=== PATIENT | female | born 1960 | race Caucasian/White ===

== ENCOUNTER 2022-11-14 09:25 | Outpatient (AMB) | payer OTHER, SELFPAY ==
--- NOTE | 2022-11-14 09:32 | AM.OFFWIN_ITS ---
Intake Vital Signs 11/14/22 09:41 BP 110/74 Blood Pressure Location Lt brachial Position Sitting Pulse 64 Pulse Source Pulse Oximeter Temp 97.7 F Temp Source Temporal Artery Scan Pulse Oximetry (%) 97 Oxygen Delivery Method Room Air Intake Visit Reasons: ?UTI (rahel) Intake Note: Patient here for possible UTI. frequent urination, burning while urinating and after. Patient Tobacco Use Status: Former Tobacco user Allergies No Known Allergies Allergy (Verified 11/14/22 09:39) Do you need a note to return to daycare/school/sports/work: No HPI ?UTI (lobby) HPI Details 62-year-old female patient presents today with vaginal burning and itching. She reports burning, particularly after urination. Denies any fever or chills. Denies odor to the urine however notices a slightly bad vaginal odor this morning. Denies flank pain. Symptoms presented several days ago after taking Amoxicillin for a tooth infection. She denies any new sexual partners. She states she does not have vaginal intercourse due to vaginal dryness s/p menopause. [facility] Social History Patient Tobacco Use Status: Former Tobacco user Review of Systems Const All systems reviewed & are unremarkable except as noted in HPI and below Physical Exam Vital Signs: Last Vital Signs Temp 97.7 F 11/14/22 09:41 Pulse 64 11/14/22 09:41 BP 110/74 11/14/22 09:41 Pulse Ox 97 11/14/22 09:41 Oxygen Delivery Method Room Air 11/14/22 09:41 Const General: cooperative and no acute distress Resp Effort & Inspection: normal respiratory effort and able to speak in complete sentences Cardio Jugular venous distension: no JVD General: Yes bladder normal to palpation and Yes no CVA tenderness Bimanual exam- vagina & uterus: bladder normal to palpation Back/Spine/Pelvis Back: no CVA tenderness Skin General skin exam: no rashes or lesions noted Extrem General: Yes capillary refill normal and Yes no clubbing, cyanosis or edema Psych Appearance: grossly normal Mental Status: mental status grossly normal Speech and movement: Normal speech and movement present Results AMB Urinalysis, Automated UA Leukoctes 15 Ramirez/uL Last Edit by PIERRE Castaneda on 11/14/22 09:5 7 UA Nitrite Negative Last Edit by PIERRE Castaneda on 11/14/22 09:57 UA Urobilinogen 0 mg/dL Last Edit by PIERRE Castaneda on 11/14/22 09: 57 UA Protein 0 mg/dL Last Edit by PIERRE Castaneda on 11/14/22 09:57 UA pH 6.0 Last Edit by Sara Hinson [facility] on 11/14/22 09:57 UA Blood 0 Adam/uL Last Edit by Sara Hinson [facility] on 11/14/22 09:57 UA Specific [place] 1.020 Last Edit by PIERRE Castaneda on 11/14/22 09:57 UA Ketone Negative Last Edit by Sara Hinson [facility] on 11/14/22 09:57 UA Bilirubin 1 mg/dL Last Edit by Sara Hinson [facility] on 11/14/22 09:57 UA Glucose 0 mg/dL Last Edit by Sara Hinson [facility] on 11/14/22 09:57 Assessment & Plan Assessment & Plan (1) Vulvovaginal candidiasis: Code(s): B37.31 - Acute candidiasis of vulva and vagina Plan: Patient has symptoms likely account retention representative of oval vaginal candidiasis. She recently had course of antibiotics due to an oral infection. She declined vaginal exam or swab. Urine dip in the office not consistent with UTI. We discussed treatment options. She would like to try topical product first. Will send miconazole vaginal cream and also Fluconazole PO should symptoms persist. We reviewed vaginal health and she may continue to use probiotics. We reviewed water-based lubricants for sexual intercourse and I advised she see her CNM to discuss post-menopausal vaginal symptoms. She agrees to plan. Orders: Orders AMB Urinalysis Automated Today Z13.9 - Encounter for screening, unspecified Medications: New fluconazole may repeat second dose 72 hrs after first dose if symptoms persist 150 mg PO Q3D 2 tabs 0RF 2 doses miconazole nitrate 2% 1 appful vaginal BEDTIME 45 grams 0RF 7 days B37.31 - Acute candidiasis of vulva and vagina Coding Level of Care Code Est Pt Level 3 (33352) Diagnoses Vulvovaginal candidiasis B37.31
[2022-11-14 09:41] VITALS: BP 110/74; PULSE 64; TEMP 36.5; O2SAT 97
== END 2022-11-14 10:05 | disposition home or self-care (01) ==
PROVIDERS: PCP Internal Medicine; Visit Provider Nurse Practitioner Family
DX: B37.31 Acute candidiasis of vulva and vagina (principal); Z13.9 Encounter for screening, unspecified
CPT/HCPCS: 81003; 99213

== ENCOUNTER 2023-10-03 10:34 | Outpatient (REF) | payer OTHER, SELFPAY | END 2023-10-03 10:35 | disposition home or self-care (01) | LOC: HO.HOSX 10:34 | PROVIDERS: Visit Provider Orthopaedic Surgery | DX: Z13.89 Encounter for screening for other disorder (principal) ==

== ENCOUNTER 2023-10-10 09:20 | Outpatient (REF) | payer OTHER, SELFPAY ==
--- NOTE | ~2023-10-10 | XR_ITS ---
EXAMINATION: XR KNEE, RIGHT CLINICAL INFORMATION: Right knee pain COMPARISON: None available. TECHNIQUE: Three views of the right knee. FINDINGS: Revised total knee arthroplasty components are in the usual position and alignment without evidence of loosening or fracture. Probable small joint effusion. XR/XR knee RT 3V IMPRESSION: Revised total knee arthroplasty without evidence of complication. Probable small joint effusion.
== END 2023-10-10 09:21 | disposition home or self-care (01) ==
LOC: HO.HOSX 09:20
PROVIDERS: Visit Provider Orthopaedic Surgery
DX: M25.561 Pain in right knee (principal)
CPT/HCPCS: 73562; 99212

== ENCOUNTER 2023-10-10 14:12 | Outpatient (AMB) | payer OTHER, SELFPAY ==
--- NOTE | 2023-10-10 14:18 | MHC.OFFVIS ---
Intake Visit Reasons: New PT - Right Knee Pain Intake Note: Leanne is a 63 year old female who presents with complaints of intermittent discomfort in her right knee. The patient originally underwent right total knee replacement surgery by myself around 2004. The patient subsequently fell off of a cart loosening her total knee arthroplasty. The patient underwent revision surgery by Dr. Moy several years ago. Since that time she has had intermittent discomfort. She denies any locking or giving way. The patient states that she is no longer taking narcotics for her discomfort. Allergies No Known Allergies Allergy (Verified 11/14/22 09:39) Medication List - Last Reconciled 10/10/23 by Deniz Arteaga MD albuterol sulfate 90 mcg/actuation 0 mcg inhalation clonazepam 0.5 - 1 mg PO BEDTIME fluconazole 150 mg PO Q3D 2 doses fluoxetine 40 mg PO DAILY levothyroxine 75 mcg PO 6XW loratadine 10 mg PO DAILY methocarbamol 500 mg PO TID PRN miconazole nitrate 2% 1 appful vaginal BEDTIME 7 days morphine ER 30 mg PO BID PRN omeprazole 20 mg PO DAILY oxybutynin chloride ER 5 mg PO DAILY prednisone 0 mg PO topiramate 100 mg PO DAILY [facility] Social History Patient Tobacco Use Status: Former Tobacco user Physical Exam Const Other: Well-nourished well-developed very friendly female awake alert and oriented x3 in no acute distress Extrem Other: Bilateral lower extremity examination shows good capillary refill, no skin lesions noted, normal sensation light touch Right knee examination shows that the surgical incision is well healed, no erythema, full active extension and flexion to 115 degrees, her patella tracks well, no instability, no focal joint line tenderness, no crepitus with Results Reviewed Results Reviewed: X-rays of the patient's right total knee arthroplasty show that the femoral and patella components are in good position with no signs of loosening, there is a small amount of lucency around the medial aspect of the proximal tibia component but good distal fixation, no gross loosening Assessment & Plan Assessment & Plan (1) Right knee pain: Code(s): M25.561 - Pain in right knee Category: Medical Plan Ms. Langford presents with intermittent right knee pain after undergoing revision total knee arthroplasty by Dr. Moy at [facility] several years ago. At this point I do not feel that her tibial component is loose due to the distal fixation and only small amounts of lucency around the tibial component. I do not feel that another revision surgery is indicated at this time. I will see whether or not she has a candidate for a nerve stimulator procedure by Dr. Martinze here at [facility] in our pain management department. The patient will follow-up as instructed. She will contact me prior to her follow-up appointment in 3 months should her symptoms worsen in any way. Feel free to call me at any time should questions regarding her orthopedic management arise. I spent 21 minutes in reviewing the patient's records and imaging studies, seeing the patient and documenting in the medical record. Orders: Orders XR knee RT 3V 10/10/23 M25.561 - Pain in right knee Referrals Pain Management Referral M25.561 - Pain in right knee Coding Level of Care Code Est Pt Level 3 (76749) Diagnoses Right knee pain M25.561
== END 2023-10-10 14:51 | disposition home or self-care (01) ==
PROVIDERS: PCP Internal Medicine; Visit Provider Orthopaedic Surgery
DX: M25.561 Pain in right knee (principal); Z96.651 Presence of right artificial knee joint
CPT/HCPCS: 99213

== ENCOUNTER 2023-11-06 10:15 | Outpatient (AMB) | payer OTHER, SELFPAY ==
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
[2023-11-06 10:19] VITALS: BP 133/79; PULSE 97; O2SAT 93; BMI 28.9
== END 2023-11-06 10:40 | disposition home or self-care (01) ==
PROVIDERS: PCP Internal Medicine; Referring Provider Orthopaedic Surgery; Visit Provider Internal Medicine
DX: M25.561 Pain in right knee (principal); M25.562 Pain in left knee; G89.28 Other chronic postprocedural pain; Z96.653 Presence of artificial knee joint, bilateral; G90.529 Complex regional pain syndrome I of unspecified lower limb
CPT/HCPCS: 99204

== ENCOUNTER → 2023-11-06 10:15 | Outpatient (BNVA) | payer OTHER, SELFPAY | PROVIDERS: PCP Internal Medicine; Referring Provider Orthopaedic Surgery; Visit Provider Internal Medicine | DX: M25.561 Pain in right knee (principal); M25.562 Pain in left knee; G89.28 Other chronic postprocedural pain; G90.529 Complex regional pain syndrome I of unspecified lower limb; Z96.653 Presence of artificial knee joint, bilateral | CPT/HCPCS: 99202 ==

== ENCOUNTER 2024-09-03 12:11 | Outpatient (REF) | payer OTHER, SELFPAY ==
--- OUTSIDE RECORDS SUMMARY | 2024-09-04 13:09 | XMS_ITS ---
Author Name [facility] Organization Unknown History of Medication Use Medication Directions Dispensed Refills Start Date End Date Stat albuterol sulfate HFA 90 mcg/actuation aerosol inhaler INHALE 2 PUFFS INTO THE LUNGS EVERY 4 HOURS NEEDED FOR COUGH OR WHEEZING OR SHORTNESS OF BREATH active amoxicillin 500 mg capsule TAKE 4 CAPSULE BY MOUTH 1 HOUR PRIOR TO APPT. active amoxicillin 875 mg-potassium clavulanate 125 mg tablet TAKE 1 TABLET BY MOUTH EVERY 12 HOURS active fluconazole 150 mg tablet TAKE 1 TABLET BY MOUTH ONCE DOSE active fluoxetine 40 mg capsule TAKE 1 CAPSULE BY MOUTH DAILY active levothyroxine 75 mcg tablet TAKE 1 TABLET BY MOUTH ONCE A DAY MONDAY THROUGH MONDAY. SKIP SUNDAYS active methocarbamol 500 mg tablet TAKE 1 TABLET BY MOUTH THREE TIMES DAILY NEEDED FOR SPASM active nitrofurantoin monohydrate/macrocryst als 100 mg capsule TAKE 1 CAPSULE BY MOUTH TWICE DAILY FOR 7 DAYS active oxybutynin chloride ER 5 mg tablet,extended release 24 hr TAKE 1 TABLET BY MOUTH DAILY active prednisone 1 mg tablet a ctive topiramate 100 mg tablet TAKE 1 TABLET BY MOUTH EVERY DAY active Allergies Allergen Reaction Severity Comment Documented Date Source Statu s HOUSE DUST [facility] Problems Problem Status Onset Date Problem Type Date of Resoluti on Source Pain of right knee joint active 2022-12-16 ProblemAct [facility] 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 active 2022-09-28 ProblemAct [facility] Loosening of total knee replacement active 2022-09-28 ProblemAct [facility] Skin lesion active 2022-09-28 ProblemAct [facility] Encounters Encounter Type Encounter Reason Primary Diagnosis Location Date Ambulatory [facility] 02/08/2023 Ambulatory [facility] 10/11/2022 Ambulatory [facility] 10/03/2022 Ambulatory [facility] 09/28/2022 Ambulatory [facility] 09/15/2022 Ambulatory [facility] 09/15/2022
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
--- OUTSIDE RECORDS SUMMARY | 2024-09-04 13:10 | XMS_ITS | Data Portability ---
Author Organization [place] [facility] Mauricio Whitten [place] Address [address] [place] [address] Assessment Encounter Date Assessment Date Assessment LastModified by Organization Details LastModified Time 09/28/2022 09/28/2022 62-year-old female with right total knee arthroplasty by Dr. Arteaga.n October 21, 2019 who is evaluated on 11/10/2020 with concerns for aseptic hardware loosening for which she was referred to Dr. Moy for which she had a revision right total knee arthroplasty with ongoing swelling. She does not have any obvious signs of hardware loosening on plain x-ray however we will plan the following; I will send her for the following 1. ESR, CRP if elevated will bring her back for aspiration 2. Possible Future CT of the right knee to rule out hardware loosening 3. Schedule follow-up visit after imaging study and infectious work-up with Dr. Scott. In the meantime she can take [id number] pain medication for symptomatic relief. Patient agrees with above-noted plan. Right shoulder skin lesion concerning for malignant melanoma upon further questioning patient father with skin cancer. I will refer her to [facility] dermatology for urgent evaluation. Plan schedule appointment tomorrow 09/29/2022 Indirect care and treatment in conjunction with Dr. Scott Additional treatment plan discussed with the patient in detail included the following; - Provider focused nonsteroidal anti-inflammatory regimen (discussed were the pros, cons, benefits and risks as well as any black box warnings) in patients over 60 years old they should be very cautious in taking these medications due to potential decreased kidney function and or elevated blood pressure. - Analgesic pain medication for pain suppression (discussed were the pros, cons, benefits and risks as well as any black box warnings) - The use of topical pain relieving medication were discussed - The use of ice to decrease inflammation and pain - The use of assistive ambulatory devices for ambulation and fall prevention - Formal specific guided physical therapy program I reviewed my findings at length with the patient today. ? ? ?We discussed the nature and etiology of this problem along with current treatment options. We discussed the expected course and outcomes and what to expect. We also discussed risks and benefits. ? ? ? All of their questions were answered today, and there was exhibited understanding and comprehension of all that was discussed. Time Spent: 15 minutes were spent reviewing previous imaging and charting. ? ? ?15 minutes were spent obtaining patient history. ? ? ?10 minutes were spent on physical exam. ? ? ?10? ? ?minutes were spent explaining diagnosis and assessment. Today's documentation was made using voice recognition software. This note may contain grammatical errors secondary to the software. Not available 09/28/2022 10:49:52 10/10/2022 10/10/2022 62-year-old female who underwent revision right knee arthroplasty by Dr. Moy with ongoing pain ESR and CRP within the acceptable range Lyme negative. I will send her for CT scan for rule out of hardware loosening and underlying pathology Indirect care and treatment in conjunction with Dr. Scott Additional treatment plan discussed with the patient in detail included the following; - Provider focused nonsteroidal anti-inflammatory regimen (discussed were the pros, cons, benefits and risks as well as any black box warnings) in patients over 60 years old they should be very cautious in taking these medications due to potential decreased kidney function and or elevated blood pressure. - Analgesic pain medication for pain suppression (discussed were the pros, cons, benefits and risks as well as any black box warnings) - The use of topical pain relieving medication were discussed - The use of ice to decrease inflammation and pain - The use of assistive ambulatory devices for ambulation and fall prevention - Formal specific guided physical therapy program I reviewed my findings at length with the patient today. ? ? ?We discussed the nature and etiology of this problem along with current treatment options. We discussed the expected course and outcomes and what to expect. We also discussed risks and benefits. ? ? ? All of their questions were answered today, and there was exhibited understanding and comprehension of all that was discussed. Time Spent: 10 minutes were spent reviewing previous imaging and charting. ? ? ?10 minutes were spent obtaining patient history. ? ? ?5 minutes were spent on physical exam. ? ? ?5? ? ?minutes were spent explaining diagnosis and assessment. Today's documentation was made using voice recognition software. This note may contain grammatical errors secondary to the software. Not available 10/10/2022 11:26:51 12/16/2022 12/16/2022 HPI : ?Thank you for the pleasure of requesting a consultation on this patient. Patient comes in complaining of right knee pain. Patient underwent a right TKA with Dr. Arteaga in 2018. She was doing well until 2020 when she developed aseptic loosening of the tibial component. She underwent revision surgery with Dr. Moy in December 2020. This was a tibial revision surgery. She states she was doing well until the last maybe 6 months. She reports some increasing symptoms in the right knee. She has had work-up including ESR and CRP which were negative for signs of P JI. She had a CT scan which was showed some lucency which could be suggestive of loosening. She was referred to me for further evaluation. Review of systems is negative for rapidly progressive neurological disorder, chest pain, shortness of breath, fevers, chills, or any signs of active or persistent local or systemic infection. Physical Exam : Patient is well nourished, well-developed, in no acute distress, with appropriate mood and affect. The patient is oriented to time, place, and person. Respirations are even and unlabored. Gait evaluation does reveal a limp. There is no inguinal adenopathy. Examination of the contralateral knee shows normal range of motion, strength, no tenderness, and intact skin. The affected limb is well-perfused, shows a grossly normal motor and sensory examination. The previous skin incision is well-healed. Right knee motion is significantly reduced and does cause significant pain. The knee moves from 5-115 degrees. The knee is stable within that [id number] to AP and ML stress. The alignment of the knee is neutral. Some tibial joint line tenderness. Muscle strength is normal. Pedal pulses are palpable. Hip examination, including flexion and internal rotation, was negative in that groin pain was not produced. Assessment/Plan : patient has pain following right revision total knee replacement. It is not definitive whether she has tibial loosening. While there are lucent lines around the implant on both CT and x-ray imaging, this is not progressive, and there is no change in component position over the last 3 months. I discussed with her that it is possible that it is loose, but undergoing another revision surgery would be even more complex and come with higher risk. Currently she can function and ambulates with a cane. My preference would be to watch her over the next 6 months. I would like to see her progression, and we can get repeat radiographs in 6 months. If symptoms significantly worsen before then she can come in before then. Not available 12/16/2022 13:29:25 07/21/2023 07/21/2023 HPI: ? patient is here for follow-up for her right revision total knee replacement by Dr. Moy in 2020. I saw her 6 months ago. There was concern for tibial loosening again. My preference was to follow this. I wanted her to follow-up in 6 months with repeat x-rays. She states the symptoms are about the same or may be slightly worse. She has difficulty with ambulation, although she did come in today unassisted with a cane. Physical Exam: Patient is well nourished, well-developed, in no acute distress, with appropriate mood and affect. The patient is oriented to time, place, and person. Respirations are even and unlabored. Gait evaluation does reveal a limp. There is no inguinal adenopathy. Examination of the contralateral knee shows normal range of motion, strength, no tenderness, and intact skin. The affected limb is well-perfused, shows a grossly normal motor and sensory examination. The previous skin incision is well-healed. Right knee motion is significantly reduced and does cause significant pain. The knee moves from 5-115 degrees. The knee is stable within that [id number] to AP and ML stress. The alignment of the knee is neutral. Some tibial joint line tenderness. Muscle strength is normal. Pedal pulses are palpable. Hip examination, including flexion and internal rotation, was negative in that groin pain was not produced. Assessment/Plan : patient has pain following right revision total knee replacement. It is not definitive whether she has tibial loosening. I do not see this progression of lucent lines compared to prior x-rays from 6 months ago. My recommendation would be to continue to follow this. Re-Revision surgery would be much more complex without a guarantee of success. She is in understanding and agreement with this. We will have her follow-up in 1 year with repeat x-rays of the right knee at that time. Not available 07/21/2023 11:22:43 Plan of Treatment Reminders Order Date Submit Date Provider Last Modified By Organization Details Last Modified Time Details Appointments None recorded. Lab ESR (erythrocyt e sedimentati on rate), blood 2022 023 [email or web address] Not available 3 10:40:16 lyme disease Ab, serum 2022 023 [email or web address] Not available 3 16:32:20 C-reactive protein, quantitativ e, serum or plasma 2022 023 Not available 3 16:32:[address] referral - Suspected Melenoma Right Anterior Shoulder [facility] 2022 023 [email or web address] Not available 3 08:18:13 Procedures None recorded. Surgeries None recorded. Imaging XR, knee, 3 view 2023 024 [facility], [address], [place], [address], 4 11:46:13 XR, knee, 3 view 2022 023 [facility], [address], [place], [address], 3 15:18:32 CT, knee, w/o contrast - Chronic RIGHT knee pain after revision knee replacement R/O Hardware loosening Please call patient to schedule and hand carry CD 2022 023 [facility] [address] Department, [address] [place] [address], [address], 3 11:35:55 XR, knee, 3 view 2022 023 [email or web address] [facility], [address], [address], [place], [address], 10:50:41 Medication Orders None recorded. Patient TargetsNo targets recorded. Patient Instructions Encounter Date Encounter Id Patient Instructions Last Modified By Organization Details Last Modified Time 09/28/2022 [id number] Right knee total arthroplasty without obvious signs of loosening no acute bony abnormality however she does have a notable patellar tilt on sunrise view, left total knee arthroplasty AP and sunrise view in satisfactory position Not available 09/28/2022 10:49:09 12/16/2022 [id number] AP, lateral, patellar views of the right knee demonstrate a right revision total knee replacement. There is a longstem tibial component. There is lucent lines throughout the tibial component, there is no gross change in component position. These are compared to radiographs from 3 months ago. Not available 12/16/2022 13:29:52 07/21/2023 [id number] AP, lateral, patellar view of the right knee demonstrates a right revision total knee replacement with components in appropriate position. There lucent lines around the tibial component and stem in both the AP and lateral. There is no change in these lucent lines compared to prior radiographs from 6 months ago. There are no signs of gross loosening. Not available 07/21/2023 11:22:39 Reason for Referral Product Ambassador Referral for S kin lesion Suspected Melenoma Right Anterior Shoulder [facility] Referring Physician: Jojo Cason, Orthopedic Surgery, Encounter Date: 09/28/2022 Results Created Date Observation Date Name Description Value Unit Range Abnormal Flag Note LastModifiedBy Organization Detail LastModifiedTime 12/17/[address], knee, w/o contr ast No observ ation record ed. [email or web address] [facility] Department [address] [place], [address], 12/16/2022 10:58:30 Result Notes None recorded. Problems Name Problem SNOMED Code Status Onset Date Resolution Date Notes Provider Name and Address Organization Details Recorded Time Pain of right knee joint 3944334453829 00 Active 2022 Gentry Scott MD [address], [place], [address], [place] [facility] 3 13:26:11 Loosening of total knee replacement 708524374 Active 2022 JOOJ CASON PA-C [address], [place], [address], [place] [facility] 3 07:36:03 Chronic pain following right total knee arthroplast y 9080682029456 9100 Active 2022 JOJO CASON PA-C [address], [place], [address], [place] [facility] 3 09:44:34 Skin lesion 50464575 Active 2022 JOJO CASON PA-C [address], [place], [address], [place] [facility] 3 09:45:20 Problem Notes None recorded. Procedures Surgical History None recorded. Imaging Results Imaging Date Name Status LastModified by Organiz ation Details LastModified Time 12/16/2022 CT, knee, w/o contrast completed [address] Department [address] [facility], [place], [address], 12/16/2022 10:58:30 Procedure Notes None recorded. Medical Equipment None Reported. Allergies Allergen ID Allergen Name Allergen Category Reaction Reaction Severity Criticality Documentation Date Start Date Code Code System Note Provider Name and Address Organization Details Recorded Time 5524 house dust allergeni c extract environme nt,medica tion Not available Not available Not available 10/10/2022 76912 9 RxNorm Gisella Sidhu [facility], [place] [facility] 3 10:56:16 Medications Name Sig Start Date Stop Date Status Note LastModified by Organization Details LastModified Time fluoxetine 40 mg capsule TAKE 1 CAPSULE BY MOUTH DAILY active Not Available Not Available No t Available amoxicillin 500 mg capsule TAKE 4 CAPSULE BY MOUTH 1 HOUR PRIOR TO APPT. 07/20 completed Not Available Not Available Not Available methocarbam ol 500 mg tablet TAKE 1 TABLET BY MOUTH THREE TIMES DAILY NEEDED FOR SPASM active Not Available Not Available No t Available clindamycin HCl 300 mg capsule TAKE 1 CAPSULE BY MOUTH EVERY 6 HOURS 07/20 completed Not Available Not Available Not Available azithromyci n 250 mg tablet TAKE 2 TABLETS BY MOUTH FOR 1 DAY THEN TAKE 1 TABLET BY MOUTH FOR 4 DAYS 10/04 completed Not Available Not Available Not Available ibuprofen 800 mg tablet TAKE 1 TABLET BY MOUTH EVERY 6 HOURS WITH FOOD active Not Available Not Available No t Available fluconazole 150 mg tablet TAKE 1 TABLET BY MOUTH ONCE DOSE active Not Available Not Available No t Available hydrocodone 5 mg-acetamin ophen 325 mg tablet TAKE 1 TABLET BY MOUTH EVERY 4 HOURS NEEDED FOR MODERATE PAIN 10/04 completed Not Available Not Available Not Available prednisone 20 mg tablet TAKE 1 TABLET BY MOUTH DAILY FOR 5 DAYS active Not Available Not Available No t Available clonazepam 0.5 mg tablet TAKE 1 TO 2 TABLETS BY MOUTH AT BEDTIME. MAY FILL FEWER active Not Available Not Available No t Available miconazole nitrate 2 % vaginal cream INSERT 1 APPLICATO RFUL VAGINALLY AT BEDTIME FOR 7 DAYS active Not Available Not Available No t Available morphine ER 30 mg tablet,exte nded release TAKE 1 TABLET BY MOUTH TWICE DAILY. MAY PARTIALFI LL. FILL WHEN DUE active Not Available Not Available No t Available acetaminoph en 500 mg tablet TAKE 1 TABLET BY MOUTH EVERY 4 TO 6 HOURS NEEDED active Not Available Not Available No t Available amoxicillin 500 mg tablet TAKE 4 TABLETS BY MOUTH 1 HOUR BEFORE SURGERY 07/20 completed Not Available Not Available Not Available levothyroxi ne 75 mcg tablet TAKE 1 TABLET BY MOUTH ONCE A DAY MONDAY THROUGH MONDAY. SKIP Sundays completed Not Available Not Available Not Available potassium chloride ER 20 mEq tablet,exte nded release(par t/cryst) TAKE 2 TABLETS BY MOUTH DAILY active Not Available Not Available No t Available prednisone 1 mg tablet 07/20 completed Not Available Not Available Not Available benzonatate 100 mg capsule TAKE 1 CAPSULE BY MOUTH THREE TIMES DAILY FOR UP TO 7 DAYS NEEDED FOR COUGH 10/04 completed Not Available Not Available Not Available levothyroxi ne 50 mcg tablet TAKE 1 TABLET BY MOUTH 6 DAYS A WEEK 07/20 completed Not Available Not Available Not Available prednisone 2.5 mg tablet TAKE 1 TABLET BY MOUTH EVERY MORNING TRIPLE DOSE FOR 3 DAYS IF ACUTE ILLNESS FOR 90 DAYS active Not Available Not Available No t Available oxybutynin chloride ER 5 mg tablet,exte nded release 24 hr TAKE 1 TABLET BY MOUTH DAILY active Not Available Not Available No t Available omeprazole 20 mg capsule,del ayed release TAKE 1 CAPSULE BY MOUTH DAILY active Not Available Not Available No t Available methylpredn isolone 4 mg tablets in a dose pack FOLLOW PACKAGE DIRECTION S active Not Available Not Available No t Available albuterol sulfate HFA 90 mcg/actuati on aerosol inhaler INHALE 2 PUFFS INTO THE LUNGS EVERY 4 HOURS NEEDED FOR COUGH OR WHEEZING OR SHORTNESS OF BREATH active Not Available Not Available No t Available topiramate 100 mg tablet TAKE 1 TABLET BY MOUTH EVERY DAY active Not Available Not Available No t Available loratadine 10 mg tablet TAKE 1 TABLET BY MOUTH ONCE DAILY active Not Available Not Available No t Available amoxicillin 875 mg-potassiu m clavulanate 125 mg tablet TAKE 1 TABLET BY MOUTH EVERY 12 HOURS 07/20 completed Not Available Not Available Not Available oxycodone 5 mg tablet TAKE 1 TABLET BY MOUTH EVERY 6 HOURS NEEDED FOR BREAKTHRO UGH PAIN active Not Available Not Available No t Available nitrofurant oin monohydrate /macrocryst als 100 mg capsule TAKE 1 CAPSULE BY MOUTH TWICE DAILY FOR 7 DAYS active Not Available Not Available No t Available chlorhexidi ne gluconate 0.12 % mouthwash RINSE WITH 15ML BY MOUTH FOR 30 SECONDS EVERY AM AND PM AFTER BRUSHING TEETH THEN SPIT DO NOT SWALLOW 07/20 completed Not Available Not Available Not Available Stimulant Laxative Plus 8.6 mg-50 mg tablet TAKE 1 TO 2 TABLETS BY MOUTH DAILY active Not Available Not Available No t Available Vitals Date Recorded Body height Provider Name an d Address Organization Details Last Updated DateTime 07/21/[address] [place] [facility] 07/21/2023 10:49:01 Date Recorded Body mass index (BMI) Body weight Provider Name and Address Organization Details Last Updated DateTime 07/21/2023 29.7 kg/m2 87179.[address] [place] [facility] 07/21/2023 10:49:57 Date Recorded Body height Body mass index (BMI) Body weight Provider Name and Address Organization Details Last Updated DateTime 10/10/2022 149.86 cm 30.3 kg/m2 81557.[address] [place] [facility] 10/10/2022 10:55:56 Date Recorded Body height Provider Name an d Address Organization Details Last Updated DateTime 12/16/[address] [place] [facility] 12/16/2022 12:44:41 Date Recorded Body mass index (BMI) Body weight Provider Name and Address Organization Details Last Updated DateTime 12/16/2022 29.7 kg/m2 [address]2942.[address] [facility] 12/16/2022 13:06:59 Social History Question Answer Notes LastModified by [employer] Details LastModified Time Tobacco Smoking Status Former Smoker Gisella Sidhu [place] [facility] 10/10/2022 10:58:34 When Did You Quit Smoking? 15+yearssinc elastcigaret te Information not available 10/10/2022 Sex: Unknown Functional Status Question Answer Note LastModified by [employer] Details LastModified Time Do you use any illicit or recreational drugs? No Information not available 10/10/2022 Do you or have you ever used any other forms of tobacco or nicotine? No Information not available 10/10/2022 What is your level of alcohol consumption? None Information not available 10/10/2022 Mental Status None recorded. Family History Relationship Description Onset Age of this Age Resolved Age Notes LastModified by Organization Details LastModified Time Father Arthritis Not available 10/10/2022 10:57:23 Father Heart disease pacema ker Not available 10/10/2022 10:57:49 Mother Arthritis Not available 10/10/2022 10:57:23 Mother Family history of malignant neoplasm Not available 2022 10:57:32 Brother Hypercholest erolemia Not available 2022 10:58:00 Medical History Condition Response Reflux/GERD Y Hypothyroidism Y Gynecological HistoryNo gynecological history recorded. Obstetrics History GPAL:G 0 P 0 0 0 0 Past Encounters Encounter ID Performer Location Encounter Start Date Encounter Closed Date Diagnosis/Indication Diagnosis SNOMED-CT Code Diagnosis ICD10 Code Diagnosis Note [id number] NATA ALEXANDER [employer] [address] [place] [address] 09/28/2022 09:08:17 09/28/2022 10:14:37 Loosening of total knee replacement 520209012 T84.032D Chronic pa in following right total knee arthroplasty 2236441967 3670532 T84.84XD Skin lesion 88212845 L98 .9 [id number] NATA ALEXANDER [email or web address] [address] [place] [address] 10/10/2022 10:25:51 10/10/2022 10:51:18 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 3237870444 7382392 T84.84XD [id number] MD [facility]DE[facility] [address] [place] [address] 12/16/2022 12:38:56 12/16/2022 13:32:56 History of right total knee replacement 3018511067 143449 Z96.651 Pain of ri ght knee joint 6813910174 67219 M25.561 [id number] MD PEPITO PatelMI [email or web address] [address] [place] [address] 07/21/2023 10:02:26 07/21/2023 11:24:17 Loosening of total knee replacement 590816704 T84.032D Chronic pa in following right total knee arthroplasty 3808939808 6994136 T84.84XD Health Concerns Section Related Observation LastModified by Organization Detai ls LastModified Time None Recorded Concern Status LastModified by Organization Details LastModified Time None Recorded Advance Directives Directive None Recorded Payers Encounter Date Sequence Insurance Name Policy Number Policy Mcclain Covered Member ID Mcclain Member ID Guarantor Name 09/28/[address] [facility] - DOS ON OR AFTER 2022 - DUAL ELIGIBLE - [place]ANTAGE - HMO) Leanne Langford [id number] Leanne Langford 09/28/2022 2 [place] [facility] Leanne Langford [id number] Leanne Langford 10/10/[address] [facility] - DOS ON OR AFTER 2022 - DUAL ELIGIBLE [place]ANT[place] - HMO) Leanne Langford [id number] Leanne Langford 10/10/2022 2 [place] [facility] Leanne Langford [id number] Leanne Langford 12/16/2022 1 [facility] - DOS ON OR AFTER 2022 - DUAL ELIGIBLE - [place]ANTAGE - HMO) Leanne Langford [id number] Leanne Langford 12/16/2022 2 [place] [facility] Leanne Langford [id number] Leanne Langford 07/21/[address] [facility] - DOS ON OR AFTER 2022 - DUAL ELIGIBLE - [place]ANT[place] - HMO) Leanne Langford [id number] Leanne Langford 07/21/2023 2 [place] [facility] Leanne Lnagford [id number] Leanne Langford Notes Date Note Type Note Provider Name and Address Organization Details Recorded Time 09/28/2022 text/html Assessment/Plan: Date of visit 11/10/2020Ms. Langford presents with right knee pain after undergoing right total knee replacement surgery on October 21, 2019 most likely due to early aseptic loosening of her tibial component after suffering a twisting injury 2 months ago. The patient does not have any clinical signs of infection. She may indeed require revision of her tibial component at some point in the future. No one in my office currently performs this type of surgery. I will try to arrange for the patient to have a follow-up appointment locally with an orthopedic surgeon who could further discuss the risks and benefits of this type of procedure with her. I did give her a prescription for Vicodin to help with her pain in the meantime. She will continue weightbearing as tolerated. She will contact me prior to her follow-up consultation should her symptoms worsen in any way. Feel free to call me at any time should questions regarding her orthopedic management arise. HPI:62-year-old female last seen 11/10/[address] Arteaga (epic chart) for right chronic knee pain due to a presumed twisting injury. See Dr. Arteaga's assessment and plan above. On reviewing epic chart it appears that she was referred to Dr. Moy for which she had a revision right knee replacement. She states she has had issues since. Patient is complained in the past regarding swelling of her right knee denies fevers chills flulike symptoms. History of right total knee arthroplasty October 21, 2019History of left total knee arthroplasty November 08, 2020. JOJO CASON PA-C [address] [facility] [address], [place], [id number], [place] [facility], [facility] 09/28/2022 10:50:34 10/10/2022 text/html 62-year-old fema le with right total knee arthroplasty by Dr. [email or web address] October 21, 2019 who is evaluated on 11/10/2020 with concerns for aseptic hardware loosening for which she was referred to Dr. Moy for which she had a revision right total knee arthroplasty with ongoing swelling.She does not have any obvious signs of hardware loosening on plain x-ray however we will plan the following; I will send her for the following1. ESR, CRP if elevated will bring her back for aspiration2. Possible Future CT of the right knee to rule out hardware loosening3. Schedule follow-up visit after imaging study and infectious work-up with Dr. Scott. In the meantime she can take [id number] pain medication for symptomatic relief. Patient agrees with above-noted plan.Right shoulder skin lesion concerning for malignant melanoma upon further questioning patient father with skin cancer.I will refer her to [facility] dermatology for urgent evaluation. Plan schedule appointment tomorrow 09/29/2022 HPI: Since her last visit her CRP ESR were within acceptable range Lyme was negative. She still has ongoing discomfort. Without swelling. Regarding the skin lesion she had a biopsy done concerning for melanoma for which dermatology is working up. No interval change since her last visit. JOJO CASON PA-C [address] [facility],[address], [place], [address], [place] [facility] 10/10/2022 11:27:14 OBGyn Episode No OBEpisode recorded.
--- OUTSIDE RECORDS SUMMARY | 2024-09-04 13:10 | XMS_ITS | Clinical Summary ---
Author Organization [facility] Address [address] [place] [address] Care Team Providers Care Employee Relations Manager Name Role Phone Jonathan Yu MD Primary Care Provider Allergies No known active allergies Medications Medication Sig Dispensed Refills Start Date End Date Status clonazePAM (KLONOPIN) 0.5 MG tablet 0 03/24/2017 Active FLUoxetine (PROZAC) 20 MG capsule TK 1 C PO D 0 03/13/2017 Active hydrocortisone (CORTEF) tablet 5 mg TK 1 T PO BID AND TRIPLE UP FOR 3 DAYS IF ACUTE ILLNESS 3 02/16/2017 Active levothyroxine (SYNTHROID, LEVOXYL) tablet 50 mcg TK 2 TS PO 2 DAYS A WEEK AND 1 T PO 5 DAYS A WEEK 3 12/28/2016 Active loratadine (CLARITIN) 10 MG tablet TK 1 T PO QD 0 03/23/2017 Active methocarbamol (ROBAXIN) 500 MG tablet 0 03/24/2017 Active Morphine Sulfate ER (MS CONTIN) 60 MG TBCR 0 03/24/2017 Active omeprazole (PRILOSEC) 20 MG capsule TK 1 C PO D 0 02/27/2017 Active oxybutynin (DITROPAN-XL) 10 MG 24 hr tablet TK 1 T PO QD 3 02/14/2017 Active oxyCODONE (ROXICODONE) 30 MG immediate release tablet 0 03/24/2017 Active topiramate (TOPAMAX) 100 MG tablet TK 1 T PO D 2 03/23/2017 Active levothyroxine (SYNTHROID, LEVOXYL) tablet 75 mcg TK 1 T PO QD 0 04/01/2017 Active FLUoxetine (PROZAC) 40 MG capsule TAKE ONE CAPSULE BY MOUTH EVERY DAY 1 04/24/2017 Active oxybutynin (DITROPAN-XL) 5 MG 24 hr tablet TK 1 T PO D 0 09/19/2018 Active ACETAMINOPHEN EXTRA STRENGTH 500 MG tablet TK 2 CS PO TID 0 10/23/2019 Active gabapentin (NEURONTIN) 300 MG capsule TK 1 C PO HS 0 10/23/2019 Active amoxicillin (AMOXIL) 500 MG tablet Take 4 tabs 1 hour prior to dental appointment 20 tablet 3 11/07/2019 Active predniSONE (DELTASONE) 1 MG tablet 0 02/26/2020 Active enoxaparin (Lovenox) 40 MG/0.4ML SOLN Inject 0.4 mL (40 mg total) under the skin daily. 7 Syringe 0 05/14/2020 Active celecoxib (CeleBREX) 200 MG capsule 0 05/13/2020 Active STIMULANT LAXATIVE 8.6-50 MG 0 05/13/2020 Active LORazepam (ATIVAN) 1 MG tablet TAKE 1 TABLET BY MOUTH 2 HOURS PRIOR TO INJECTION AND MAY REPEAT 1 HOUR AFTER IF NEEDED 0 09/09/2020 Active HYDROcodone-acetami nophen (NORCO) 5-325 MG per tablet Take 1 tab every 8 hours as needed for pain 40 tablet 0 11/11/2020 Active Active Problems Problem Noted Date Diagnosed Date Primary osteoarthritis of both knees 04/26/2018 Family History Medical History Relation Name Comments Heart disease Father Cancer Mother Relation Name Status Comments Father Mother Social History Tobacco Use Types Packs/Day Years Used Date Smoking Tobacco: Never Alcohol Use Standard Drinks/Week Comments No 0 (1 standard drink = 0.6 oz pur e alcohol) Sex and Gender Information Value Date Recorded Sex Assigned at Not on file Gender Identity Not on file Sexual Orientation Not on file Job Start Date Occupation Industry Not on file Not on file Not on file Last Filed Vital Signs Vital Sign Reading Time Taken Comments Blood Pressure - - Pulse - - Temperature - - Respiratory Rate - - Oxygen Saturation - - Inhaled Oxygen Concentration - - Weight 77.1 kg (170 lb) 10/10/2019 12:52 PM EDT Height 149.9 cm (4' 11 ) 10/10/2019 12:52 PM EDT Body Mass Index 34.34 10/10/2019 12:52 PM EDT Plan of Treatment Health Maintenance Due Date Last Done Comments Hepatitis C Screening 1959 COVID-19 Vaccine (#1) 1959 Depression Screening 1971 BMI Counseling 1977 Preventative Health Evaluation 1977 DTap / Tdap / Td (1 - Tdap) 1978 Cervical Cancer Screening (P ap Smear) 1980 Colon Cancer Screening (Colonoscopy) 2004 Breast Cancer Screening (Mammogram) 2009 Shingrix-Zoster Vaccine (1 of 2) 2009 Influenza Vaccine (#1) 2023 Fall Risk Assessment 2024 Osteoporosis Screening (DEXA Scan) 2024 Pneumococcal Vaccine (1 of 1 - PCV) 2024 RSV Adult > 60+ Yrs or Pregn ant (1 - 1-dose 75+ series) 2034 Hepatitis B Vaccines Aged Out No long er eligible based on patient's age to complete this topic Pneumococcal Vaccine Aged Out No long er eligible based on patient's age to complete this topic RSV Ped < 20 months Aged Out No longe r eligible based on patient's age to complete this topic Care Teams Employee Relations Manager Relationship Specialty Start Date End Date Jonathan Yu MD [address] [place] [address] PCP - General Internal Medicine 03/03/17
== END 2024-09-03 12:12 | disposition home or self-care (01) ==
LOC: HO.HOSX 12:11
PROVIDERS: Visit Provider Orthopaedic Surgery
DX: Z13.89 Encounter for screening for other disorder (principal)